=== PATIENT | female | born 1995 | race African-American/Black ===

== ENCOUNTER 2019-05-23 20:59 | Emergency (ER) | payer OTHER ==
[2019-05-23 21:07] VITALS: BP 146/90; PULSE 88; TEMP 98.6; BMI 29.2
--- NOTE | 2019-05-23 21:07 | PDOC ---
Rapid Medical Evaluation Chief Complaint: Respiratory Time Seen by Provider: 05/23/19 21:04 Medical Evaluation: 05/23/19 21:05 Pt c/o: upper mid sternal tightness/pressure when swallowing or eating, + cough , no fever/ sore throat, + smoker Pt on brief exam: vss, no tonsillar involvement, lcta Pt ordered for: none Pt to proceed to the ED Discharge Disposition - Diagnosis Cough - Referrals - Patient Instructions - Post Discharge Activity
[2019-05-23] MEDS ORDERED: ACETAMINOPHEN 500 MG TABLET (FP) PO ONE (21:57)
[2019-05-23] MEDS ORDERED: ACETAMINOPHEN 500 MG TABLET (FP) ONE (21:58)
--- NOTE | 2019-05-23 21:59 | PDOC ---
History of Present Illness - General Chief Complaint: Respiratory Stated Complaint: CHEST PAIN Time Seen by Provider: 05/23/19 21:04 - History of Present Illness Initial Comments: 05/23/19 21:57 23-year-old female without comorbidities presents for evaluation of increasing cough and chest tightness over the last 3 days. Over the last month or so she has been smoking marijuana about 3 times a day which has increased from her past use. No systemic symptoms. Past History - Past Medical History Allergies/Adverse Reactions: Allergies Allergy/AdvReac Type Severity Reaction Status Date / Time apple Allergy Verified 05/23/19 21:07 pear Allergy Verified 05/23/19 21:08 COPD: No - Psycho Social/Smoking Cessation Hx Smoking History: Current every day smoker Information on smoking cessation initiated: No Review of Systems - Review of Systems Constitutional: No: Fever Respiratory: Yes: Cough Neurological: Yes: Headache *Physical Exam - Vital Signs Last Vital Signs Temp Pulse Resp BP Pulse Ox 98.6 F 88 18 146/90 100 05/23/19 21:04 05/23/19 21:04 05/23/19 21:04 05/23/19 21:04 05/23/19 21:04 - Physical Exam Comments: 05/23/19 21:58 GENERAL: The patient is awake, alert, and fully oriented, in no acute distress. HEAD: Normal with no signs of trauma. EYES: sclera anicteric, conjunctiva clear. ENT: Ears normal NECK: Normal range of motion LUNGS: Breath sounds equal, clear to auscultation bilaterally. No wheezes, and no crackles. HEART: S1 and S2 without murmur, rub or gallop. ABDOMEN: Soft, nontender, normoactive bowel sounds. No guarding, no rebound. No masses. EXTREMITIES: Normal range of motion, no edema. No clubbing or cyanosis. No cords, erythema, or tenderness. NEUROLOGICAL: Cranial nerves II through XII grossly intact. Normal speech, normal gait. PSYCH: Normal mood, normal affect. SKIN: Warm, Dry, normal turgor, no rashes or lesions noted. Medical Decision Making - Medical Decision Making 05/23/19 21:58 Benign examination. Advised patient to cut down on marijuana use and follow-up with PCP Discharge - Discharge Information Problems reviewed: Yes Clinical Impression/Diagnosis: Cough Condition: Stable Disposition: HOME - Admission No - Follow up/Referral Referrals: [facility] [Non Staff, Medical] - - Patient Discharge Instructions Additional Instructions: Please cut down on his smoking use. Return to the emergency room for worsening symptoms. And without fail, please follow-up with internal medicine in 1 to 2 days for further evaluation and treatment options. - Post Discharge Activity
== END 2019-05-23 22:04 | disposition home or self-care (01) ==
LOC: JERFT 20:59
DX: R05 Cough (principal); F12.10 Cannabis abuse, uncomplicated; Z91.018 Allergy to other foods
CPT/HCPCS: 99281-25

== ENCOUNTER 2020-04-25 20:34 | Emergency (ER) | payer OTHER ==
[2020-04-25 20:39] VITALS: BP 132/65; PULSE 88; TEMP 98; BMI 29.2
--- NOTE | 2020-04-25 20:48 | PDOC ---
History of Present Illness - General Chief Complaint: Urinary Problem Stated Complaint: ABD PAIN Time Seen by Provider: 04/25/20 20:39 History Source: Patient - History of Present Illness Timing/Duration: reports: constant Abdominal Pain Onset Location: reports: other Past History - Medical History Allergies/Adverse Reactions: Allergies Allergy/AdvReac Type Severity Reaction Status Date / Time apple Allergy Verified 04/25/20 20:39 pear Allergy Verified 04/25/20 20:39 Home Medications: Ambulatory Orders Nitrofurantoin Monohyd/M-Cryst [Macrobid -] 100 mg PO BID #14 capsule 04/25/20 metroNIDAZOLE [Flagyl -] 500 mg PO DAILY #14 tablet 04/25/20 COPD: No - Reproductive History Is Patient Now?: No - Psycho-Social/Smoking History Smoking History: Current every day smoker Information on smoking cessation initiated: No - Substance Abuse Hx (Audit-C & DAST Scrn) How often the patient has a drink containing alcohol: Monthly or less Score: In Men: 4 or > Positive; In Women: 3 or > Positive: 1 Screen Result (Pos requires Nsg. Audit-10AR): Negative Review of Systems - Review of Systems Constitutional: No: Chills, Fever ABD/GI: No: Nausea, Vomiting, Abdominal cramping : Yes: Dysuria. No: Discharge, Flank Pain, Hematuria *Physical Exam - Vital Signs Last Vital Signs Temp Pulse Resp BP Pulse Ox 98 F 88 18 132/65 99 04/25/20 20:36 04/25/20 20:36 04/25/20 20:36 04/25/20 20:36 04/25/20 20:36 - Physical Exam General Appearance: Yes: Appropriately Dressed. No: Apparent Distress HEENT: positive: Normal Voice Neck: positive: Supple Respiratory/Chest: negative: Respiratory Distress Gastrointestinal/Abdominal: positive: Normal Bowel Sounds, Soft. negative: Tender, Distended, Guarding, Rebound Musculoskeletal: negative: CVA Tenderness Integumentary: positive: Dry, Warm Neurologic: positive: Fully Oriented, Alert, Normal Mood/Affect Medical Decision Making - Medical Decision Making 04/25/20 20:48 24 yo F, no sig hx, here w/ dysuria x 2-3 days. No flank pain, n/v/f/c or vaginal lesions. Reports no ab/nl vag discharge but reports "fishy" odor to discharge. No h/o STDs. see exam Dysuria No e/o pyelo UA neg for LE or nit but will tx based on sxs (no prior sen on records) Will add flagyl for ? BV (cautioned against ETOh use) Discharge - Discharge Information Problems reviewed: Yes Clinical Impression/Diagnosis: Dysuria Vaginitis Qualifiers: Chronicity: acute Qualified Code(s): N76.0 - Acute vaginitis Condition: Good Disposition: HOME - Additional Discharge Information Prescriptions: metroNIDAZOLE [Flagyl -] 500 mg PO DAILY #14 tablet Nitrofurantoin Monohyd/M-Cryst [Macrobid -] 100 mg PO BID #14 capsule - Follow up/Referral - Patient Discharge Instructions Patient Printed Discharge Instructions: Bacterial Vaginosis, Urinary Tract Infection Additional Instructions: Take medications as directed Refrain from alcohol us with flagyl as discussed Return to ED as needed - Post Discharge Activity
[2020-04-25 20:56] LABS: PH,URINE 5.5 (5.0-8.0); URINE APPEARANCE CLEAR; URINE BILIRUBIN NEGATIVE (NEGATIVE); URINE COLOR YELLOW; URINE GLUCOSE (UA) NEGATIVE (NEGATIVE); URINE KETONE TRACE (NEGATIVE); URINE LEUK ESTERASE NEGATIVE (NEGATIVE); URINE NITRITE NEGATIVE (NEGATIVE); URINE PROTEIN NEGATIVE (NEGATIVE)
--- OUTSIDE RECORDS SUMMARY | 2020-04-25 20:56 | XMS ---
:1995 Author Organization [facility] Care Team Providers Name Role Phone Johnathan Garcia Unavailable [phone] Tito Steele Unavailable [phone] Judd, Bharat Unavailable [phone] Judd, Bharat Unavailable [phone] Aszalos, Isabela Marleny Unavailable Unavailable Aszalos, Marleny Unavailable Unavailable Aszalos, Marleny Unavailable Unavailable Aszalos, Marleny Unavailable Unavailable Aszalos, Marleny Unavailable Unavailable Aszalos, Marleny Unavailable Unavailable Aszalos, Marleny Unavailable Unavailable Aszalos, Marleny Unavailable Unavailable Aszalos, Marleny Unavailable Unavailable Walker Unavailable [phone] Walker Unavailable [phone] Joey IQBAL Unavailable Unavailable Ringstad Unavailable Unavailable Ringstad Unavailable Unavailable Ringstad Unavailable Unavailable Ringstad Unavailable Unavailable Ringstad Unavailable Unavailable Ringstad Unavailable Unavailable Ringstad Unavailable Unavailable Ringstad Unavailable Unavailable Ringstad Unavailable Unavailable Ringstad Unavailable Unavailable Ringstad Unavailable Unavailable Vikas Unavailable [phone] Naveed Unavailable Unavailable Naveed Unavailable Unavailable Naveed Unavailable Unavailable Naveed Unavailable Unavailable Re-disclosure Warning The records that you are about to access may contain information from federally- assisted alcohol or drug abuse programs. If such information is present, then the following federally mandated warning applies: This information has been disclosed to you from records protected by federal confidentiality rules (42 CFR part 2). The federal rules prohibit you from making any further disclosure of this information unless further disclosure is expressly permitted by the written consent of the person to whom it pertains or as otherwise permitted by 42 CFR part 2. A general authorization for the release of medical or other information is NOT sufficient for this purpose. The Federal rules restrict any use of the information to criminally investigate or prosecute any alcohol or drug abuse patient.The records that you are about to access may contain highly sensitive health information, the redisclosure of which is protected by Article 27-F of the [facility] Public Health law. If you continue you may haveaccess to information: Regarding HIV / AIDS; Provided by facilities licensed or operated by the [facility] Office of Mental Health; or Provided by the [facility] Office for People With Developmental Disabilities. If such information is present, then the following [facility] mandated warning applies: This information has been disclosed to you from confidential records which are protected by state law. State law prohibits you from making any further disclosure of this information without the specific written consent of the person to whom it pertains, or as otherwise permitted by law. Any unauthorized further disclosure in violation of state law may result in a fine or fpc sentence or both. A general authorization for the release of medical or other information is NOT sufficient authorization for further disclosure. Allergies and Adverse Reactions Type Description Substance Reaction Status Data Source(s ) Propensity to Propensity to Propensity to NEXTG EN ([facility] adverse reactions adverse reactions adverse reactions [facility] (disorder) (disorder) (disorder) Center) Family History Family Member Family Member Family Member Date of Description Data Source(s) Name Gender Status Status Unknown Female Diagnosis 06/10/2017 NEXTGEN ( 12:00:00 AM [facility] EST Center) Encounters Encounter Providers Location Date Indications Data Source(s ) Attender: [facility] 02/14/2019 NEXTGE N ([facility] 07:37:00 PM Phil Medic al EDT - Center) 02/14/2019 07:37:00 PM EDT Emergency H 02/13/2019 [facility] 03:32:00 AM Medical Cente r EDT Attender: [facility] 10/19/2018 NEXTGE N ([facility] 04:49:00 PM [facility] Medic al EDT - Center) 10/19/2018 04:49:00 PM EDT Emergency H 10/18/2018 [facility] 05:29:00 AM Medical Cente r EDT Attender: [facility] 08/30/2018 NEX TGEN ([facility] 10:56:00 AM [facility] Medic al EST - Center) 08/30/2018 10:56:00 AM EST Attender: [facility] 02/17/2018 NEX TGEN ([facility] 09:05:00 AM [facility] Medic al EDT - Center) 02/17/2018 09:05:00 AM EDT Attender: [facility] 09/15/2017 NEX TGEN ([facility] 11:00:00 AM [facility] al EST - Center) 09/15/2017 11:00:00 AM EST Attender: [facility] 08/19/2017 NEXTG EN ([facility] 03:16:00 PM Phil [facility] al EST - Center) 08/19/2017 03:16:00 PM EST Attender: [facility] 06/10/2017 NEX TGEN ([facility] 02:02:00 PM [facility] Medic al EST - Center) 06/10/2017 02:02:00 PM EST Attender: [facility] 01/13/2016 [facility]GE N [facility] - [facility] 01/13/2016 06:40:00 PM EDT Attender: [facility] 02/03/2015 [facility]EXTGE N [facility]i [facility]T - Center) 02/03/2015 01:31:00 PM EDT Attender: [facility] 10/22/2014 [facility]EX TGEN [facility] - [facility]) 10/22/2014 02:28:00 PM EDT Attender: [facility] 12/20/2013 NEXTG EN ([facility] 03:00:00 PM Phil Medic dc EDT - Center) 12/20/2013 03:00:00 PM EDT Attender: [facility] 11/21/2013 NEXTGE N ([facility] 11:15:00 AM Phil Medic dc EDT - Center) 11/21/2013 11:15:00 AM EDT Attender: [facility] 12/05/2012 NEXTGE N ([facility] 03:11:00 PM [facility] EDT - Center) 12/05/2012 03:11:00 PM EDT Attender: [facility] 08/23/2011 NEXTGE N ([facility] 09:57:00 AM [facility] EST - Center) 08/23/2011 09:57:00 AM EST Attender: [facility] 07/15/2010 NEXTGE N ([facility] 03:46:00 PM [facility] EST - Center) 07/15/2010 03:46:00 PM EST Attender: [facility] 12/31/2009 NEXTGE N ([facility] 01:26:00 PM [facility] EDT - Center) 12/31/2009 01:26:00 PM EDT Attender: [facility] 12/30/2009 NEXTGE N ([facility] 12:53:00 PM [facility] EDT - Center) 12/30/2009 12:53:00 PM EDT Immunizations Vaccine Date Status Description Data Source(s) New in 2011. IIV4 06/10/2017 completed Influenza, injectable, NEXTGEN ([facility] 12:00:00 AM EST quadrivalent, Phil Med ical preservative free, 3 Center) yrs or older Source: New Immunization Record HPV, quadrivalent 01/13/2016 12:00:00 AM EDT completed HPV NEXTGEN ([facility]) Source: New Immunization Record HPV, quadrivalent 02/03/2015 12:00:00 AM EDT completed HPV NEXTGEN ([facility]) Source: New Immunization Record HPV, quadrivalent 10/22/2014 12:00:00 AM EDT completed HPV NEXTGEN ([facility]) Source: New Immunization Record varicella 08/23/2011 12:00:00 AM EST completed Varicella N EXTGEN ([facility]) Source: New Immunization Record Tdap 08/23/2011 12:00:00 AM EST completed Tdap N EXTGEN ([facility]) Source: New Immunization Record Hep A, ped/adol, 2 07/15/2010 12:00:00 completed Hep A (ped/adol , 2 NEXTGEN ([facility] dose AM EST dose) [facility]) Source: New Immunization Record Hep A, ped/adol, 2 12/31/2009 12:00:00 completed Hep A (ped/adol , 2 NEXTGEN ([facility] dose AM EDT dose) [facility]) Source: New Immunization Record Medications Medication Brand Start Product Dose Route Administrative Pharmacy [facility] Indications Reaction Description Data Name Date Form Instructions Instructions Source(s) Metronidazo metron 02/17/ active take 1 NEXTGEN le 500 MG idazol 2018 tablet twice ([facility] Oral Tablet e 500 12:00: a day for 7 Phil metronidazo mg 00 AM days Medical le 500 mg tablet EDT Center) tablet Ibuprofen ibupro 1 complet [facility] 400 MG Oral fen ed Phil Tablet 400 mg Medical ibuprofen Tablet Center 400 mg , Tablet, Ordere Ordered By: d By: Cindy Emanuel MDDirection , s: 1 tablet MDDire oral every ctions six hours : 1 PRN pain tablet oral every six hours PRN pain Phenazopyri phenaz 1 complet Jacobo nt dine opyrid ed Phil hydrochlori ine Medical de 200 MG 200 mg Center Oral Tablet Tablet phenazopyri , dine 200 mg Ordere Tablet, d By: Ordered By: Natarajan MDDirection MDDire s: 1 tablet ctions oral three : 1 times a day tablet PRN dysuria oral three times a day PRN dysuri a Ciprofloxac ciprof 1 complet Jacobo nt in 250 MG loxaci ed Phil Oral Tablet n HCl Medical ciprofloxac 250 mg Center in HCl 250 Tablet mg Tablet, , Ordered By: Dai greene By: Francesco Whiteirection Cindy s: 1 tablet , oral every MDDire twelve ctions hours : 1 tablet oral every twelve hours Insurance Providers Payer name Policy type Policy ID Covered Covered libertarian's Policy P leslie / Coverage libertarian ID relationship to Palm Inf ormation type palm [place] [id number] [place] [id number] HMO MVP MEDICAID [id number] SP [id number] G HMO MVP/HHP [id number] self [id number] O MVP/HHP O [id number] 01 [id number] 500 Problems, Conditions, and Diagnoses Code Display Name Description Problem Type Effective Data Dates Source(s) [id number] Bacterial Bacterial Problem NEXTGEN vaginosis vaginosis ([facility]) R07.89 Other chest pain OTHER CHEST PAIN Diagnosis 02/13/2019 [facility] 03:32:00 AM Medical EDT Center R07.81 Pleurodynia PLEURODYNIA Diagnosis 02/13/2019 [place] [facility] 03:32:00 AM Medical EDT Center N39.0 Urinary tract URINARY TRACT Diagnosis 10/18/2018 [facility] infection, site INFECTION, SITE 05:29:00 AM Med ical not specified NOT SPECIFIED EDT Center R39.89 Other symptoms and OTHER SYMPTOMS AND Diagnosis 9 [facility] signs involving SIGNS INVOLVING 05:29:00 AM Med ical the genitourinary THE GENITOURINARY EDT Center system SYSTEM Results ID Date Data Source [id number] 10/18/2018 06:00:00 AM EDT [facility] 0 Name Value Range Interpretation Description Data Sup porting Code Source(s) Document(s ) UNK CLEAR <content [facility] styleCode="Jaime Phil d">Urine Medical Clarity Center </content>CLOU DY <content styleCode="Delilah lics"> (CLEAR )</content> Ketones NEGATIVE <content [facility] [Mass/volume] styleCode="Jaime Phil in Urine by d">Urine Medical Test strip Ketone Center </content>NEGA TIVE MG/DL<content styleCode="Delilah lics"> (NEGATIVE MG/DL)</conten t> UNK NEGATIVE <content [facility] styleCode="Jaime Phil d">Urine Medical Bilirubin Center </content>NEGA TIVE <content styleCode="Delilah lics"> (NEGATIVE )</content> Color of Urine YELLOW <content [facility] styleCode="Jaime Phil d">Color, Medical Urine Center </content>YELL OW <content styleCode="Delilah lics"> (YELLOW )</content> Glucose NEGATIVE <content [facility] [Mass/volume] styleCode="Jaime Cohens in Urine by d">Urine Medical Test strip Glucose Center </content>NEGA TIVE MG/DL<content styleCode="Delilah lics"> (NEGATIVE MG/DL)</conten t> Specific 1.015-1.02 Above high <content [facility] gravity of 5 normal styleCode="Jaime Cohens Urine by Test d">Urine Medical strip Specific Center [place] </content>>= 1.030 H<content styleCode="Delilah lics"> (1.015-1.025 )</content> Nitrite NEGATIVE <content [facility] [Presence] in styleCode="Jaime Cohens Urine by Test d">Urine Medical strip Nitrite Center </content>NEGA TIVE <content styleCode="Delilah lics"> (NEGATIVE )</content> Urobilinogen 0.2-1.0 <content [facility] [Units/volume] styleCode="Jaime Cohens in Urine by d">Urine Medical Test strip Urobilinogen Center </content>0.2 MG/DL<content styleCode="Delilah lics"> (0.2-1.0 MG/DL)</conten t> Hemoglobin NEGATIVE <content [facility] [Presence] in styleCode="Jaime Cohens Urine by Test d">Urine Blood Medical strip </content>LARG Center E <content styleCode="Delilah lics"> (NEGATIVE )</content> pH of Urine by 4.5-8.0 <content Saint Test strip styleCode="Jaime Phil d">Urine pH Medical </content>6.0 Center <content styleCode="Delilah lics"> (4.5-8.0 )</content> Protein NEGATIVE <content [facility] [Mass/volume] styleCode="Jaime Phil in Urine by d">Urine Medical Test strip Protein Center </content>300 mg/dl MG/DL<content styleCode="Delilah lics"> (NEGATIVE MG/DL)</conten t> UNK <content [facility] styleCode="Jaime Phil d">Epithelial Medical Cell Center </content>0-2 LPF (Reference Range: not available)<br/ > UNK 0-3 <content [facility] styleCode="Jaime Phil d">Urine White Medical Blood Cell Center </content>10 - 20 HPF<content styleCode="Delilah lics"> (0-3 HPF)</content> UNK 0-3 <content [facility] styleCode="Jaime Phil d">Urine Red Medical Blood Cell Center </content>100- 200 HPF<content styleCode="Delilah lics"> (0-3 HPF)</content> Leukocyte NEGATIVE <content [facility] esterase styleCode="Jaime Phil [Presence] in d">Urine Medical Urine by Test Leukocyte Center strip </content>SMAL L <content styleCode="Delilah lics"> (NEGATIVE )</content> ID Date Data Source Microbiology.[id number] 10/18/2018 06:00:00 AM EDT [facility] 400 Name Value Range Interpretation Code Description Data Elenita rce(s) Supporting Document(s ) UNK <item><content [facility] styleCode="Bold"> Medical Cent er Culture Status </content>
<t able><tbody><tr>< td>Specimen Number:</td><td>[id number]</td></tr ><tr><td>Sample Collection Date/Time: </td><td> 9 6:00 AM</td></tr><tr>< td>Specimen Source:</td><td>U RINE</td></tr><tr ><td>[place] Count Urine:</td><td>50 ,000 CFU/ML </td></tr><tr><td >Preliminary 1:</td><td>GRAM NEGATIVE BACILLI </td></tr><tr><td >Culture Status:</td><td>F inal </td></tr><tr><td >Culture Report:</td><td>C ulture in progress </td></tr><tr><td >Urine Culture:</td><td> Collection Plate Date: 10/18/2018 06:00 </td></tr><tr><td >Organism 1:</td><td>ESCHER ICHIA COLI </td></tr></tbody ></table>
<ta ble border="2"><tbody ><tr><td></td><td >1</td></tr><tr>< td>Comment</td><t d></td></tr><tr>< td>Result Value</td><td>ESC HERICHIA COLI </td></tr><tr><td >Result Status</td><td>Fi nal Result</td></tr>< tr><td>AMPICILLIN </td><td>>16 R</td></tr><tr><t d>AMPICILLIN SULBACTAM</td><td >>16/8 R</td></tr><tr><t d>AZTREONAM</td>< td><=8 S</td></tr><tr><t d>CEFOTETAN</td>< td><= 16 S</td></tr><tr><t d>CEFTAZIDIME</td ><td><=1 S</td></tr><tr><t d>CEFUROXIME</td> <td><=4 S</td></tr><tr><t d>CIPROFLOXACIN</ td><td><= 1 S</td></tr><tr><t d>ERTAPENEM</td>< td><=1 S</td></tr><tr><t d>GENTAMICIN</td> <td><= 4 S</td></tr><tr><t d>IMIPENEM</td><t d><= 1 S</td></tr><tr><t d>LEVOFLOXACIN</t d><td><= 2 S</td></tr><tr><t d>MEROPENEM</td>< td><= 1 S</td></tr><tr><t d>NITROFURANTOIN< /td><td><= 32 S</td></tr><tr><t d>PIPERACILLIN/TA ZOBACTAM</td><td> <= 16 S</td></tr><tr><t d>TETRACYCLINE</t d><td><= 4 S</td></tr><tr><t d>TIGECYCLINE</td ><td><= 2 S</td></tr><tr><t d>TRIMETHOPRIM/PATEL LFAMETHOXAZOLE</t d><td><=2/38 S</td></tr></tbod y></table></item> UNK <item><content [facility] styleCode="Bold"> Medical [facility] er Culture Report </content>
<t able><tbody><tr>< td>Specimen Number:</td><td>[id number]</td></tr ><tr><td>Sample Collection Date/Time: </td><td> 9 6:00 AM</td></tr><tr>< td>Specimen Source:</td><td>U RINE</td></tr><tr ><td>Urine Culture:</td><td> Collection Plate Date: 10/18/2018 06:00 </td></tr><tr><td >Culture Status:</td><td>F inal </td></tr><tr><td >Culture Report:</td><td>C ulture in progress </td></tr><tr><td >[place] Count Urine:</td><td>50 ,000 CFU/ML </td></tr><tr><td >Preliminary 1:</td><td>GRAM NEGATIVE BACILLI </td></tr><tr><td >Organism 1:</td><td>ESCHER ICHIA COLI </td></tr></tbody ></table>
<ta ble border="2"><tbody ><tr><td></td><td >1</td></tr><tr>< td>Comment</td><t d></td></tr><tr>< td>Result Value</td><td>ESC HERICHIA COLI </td></tr><tr><td >Result Status</td><td>Fi nal Result</td></tr>< tr><td>AMPICILLIN </td><td>>16 R</td></tr><tr><t d>AMPICILLIN SULBACTAM</td><td >>16/8 R</td></tr><tr><t d>AZTREONAM</td>< td><=8 S</td></tr><tr><t d>CEFOTETAN</td>< td><= 16 S</td></tr><tr><t d>CEFTAZIDIME</td ><td><=1 S</td></tr><tr><t d>CEFUROXIME</td> <td><=4 S</td></tr><tr><t d>CIPROFLOXACIN</ td><td><= 1 S</td></tr><tr><t d>ERTAPENEM</td>< td><=1 S</td></tr><tr><t d>GENTAMICIN</td> <td><= 4 S</td></tr><tr><t d>IMIPENEM</td><t d><= 1 S</td></tr><tr><t d>LEVOFLOXACIN</t d><td><= 2 S</td></tr><tr><t d>MEROPENEM</td>< td><= 1 S</td></tr><tr><t d>NITROFURANTOIN< /td><td><= 32 S</td></tr><tr><t d>PIPERACILLIN/TA ZOBACTAM</td><td> <= 16 S</td></tr><tr><t d>TETRACYCLINE</t d><td><= 4 S</td></tr><tr><t d>TIGECYCLINE</td ><td><= 2 S</td></tr><tr><t d>TRIMETHOPRIM/PATEL LFAMETHOXAZOLE</t d><td><=2/38 S</td></tr></tbod y></table></item> ID Date Data Source Urinalysis 10/18/2018 06:00:00 AM EDT [facility] Name Value Range Interpretation Description Data Sup porting Code Source(s) Document(s ) Glucose NEGATIVE <content [facility] [Mass/volume] styleCode="Jaime Villarreal in Urine by d">Urine Medical Test strip Glucose Center </content>NEGA TIVE MG/DL<content styleCode="Delilah lics"> (NEGATIVE MG/DL)</conten t> Color of Urine YELLOW <content Saint styleCode="[facility] d">Color, Medical Urine Center </content>YELL OW <content styleCode="Delilah lics"> (YELLOW )</content> UNK NEGATIVE <content Saint styleCode="[facility] d">Urine Medical Bilirubin Center </content>NEGA TIVE <content styleCode="Delilah lics"> (NEGATIVE )</content> Specific 1.015-1.02 Above high <content [facility] gravity of 5 normal styleCode="Jaime Villarreal Urine by Test d">Urine Medical strip Specific Center [place] </content>>= 1.030 H<content styleCode="Delilah lics"> (1.015-1.025 )</content> UNK CLEAR <content [facility] styleCode="Jaime Phil d">Urine Medical Clarity Center </content>CLOU DY <content styleCode="Delilah lics"> (CLEAR )</content> Ketones NEGATIVE <content [facility] [Mass/volume] styleCode="Jaime Phil in Urine by d">Urine Medical Test strip Ketone Center </content>NEGA TIVE MG/DL<content styleCode="Delilah lics"> (NEGATIVE MG/DL)</conten t> pH of Urine by 4.5-8.0 <content Saint Test strip styleCode="Jaime Phil d">Urine pH Medical </content>6.0 Center <content styleCode="Delilah lics"> (4.5-8.0 )</content> Urobilinogen 0.2-1.0 <content [facility] [Units/volume] styleCode="Jaime Phil in Urine by d">Urine Medical Test strip Urobilinogen Center </content>0.2 MG/DL<content styleCode="Delilah lics"> (0.2-1.0 MG/DL)</conten t> Nitrite NEGATIVE <content [facility] [Presence] in styleCode="Jaime Cohens Urine by Test d">Urine Medical strip Nitrite Center </content>NEGA TIVE <content styleCode="Delilah lics"> (NEGATIVE )</content> Hemoglobin NEGATIVE <content Saint [Presence] in styleCode="Jaime Cohens Urine by Test d">Urine Blood Medical strip </content>LARG Center E <content styleCode="Delilah lics"> (NEGATIVE )</content> Protein NEGATIVE <content Saint [Mass/volume] styleCode="Jaime Phil in Urine by d">Urine Medical Test strip Protein Center </content>300 mg/dl MG/DL<content styleCode="Delilah lics"> (NEGATIVE MG/DL)</conten t> UNK 0-3 <content Saint styleCode="Jaime Phil d">Urine Red Medical Blood Cell Center </content>100- 200 HPF<content styleCode="Delilah lics"> (0-3 HPF)</content> UNK 0-3 <content Saint styleCode="Jaime Phil d">Urine White Medical Blood Cell Center </content>10 - 20 HPF<content styleCode="Delilah lics"> (0-3 HPF)</content> Leukocyte NEGATIVE <content Saint esterase styleCode="Jaime Villarreal [Presence] in d">Urine Medical Urine by Test Leukocyte Center strip </content>SMAL L <content styleCode="Delilah lics"> (NEGATIVE )</content> UNK <content Saint styleCode="Jaime Villarreal d">Epithelial Medical Cell Center </content>0-2 LPF (Reference Range: not available)<br/ > ID Date Data Source Microbiology 10/18/2018 06:00:00 AM EDT [facility] Name Value Range Interpretation Code Description Data Elenita rce(s) Supporting Document(s ) UNK <item><content [facility] styleCode="Bold"> Medical Cent er Culture Report </content>
<t able><tbody><tr>< td>Specimen Number:</td><td>[id number]</td></tr ><tr><td>Sample Collection Date/Time: </td><td> 9 6:00 AM</td></tr><tr>< td>Specimen Source:</td><td>U RINE</td></tr><tr ><td>Urine Culture:</td><td> Collection Plate Date: 10/18/2018 06:00 </td></tr><tr><td >Culture Status:</td><td>P reliminary </td></tr><tr><td >Culture Report:</td><td>C ulture in progress </td></tr></tbody ></table></item> UNK <item><content [facility] styleCode="Bold"> Medical Cent er Culture Status </content>
<t able><tbody><tr>< td>Specimen Number:</td><td>[id number]</td></tr ><tr><td>Sample Collection Date/Time: </td><td> 9 6:00 AM</td></tr><tr>< td>Specimen Source:</td><td>U RINE</td></tr><tr ><td>Culture Status:</td><td>P reliminary </td></tr><tr><td >Culture Report:</td><td>C ulture in progress </td></tr><tr><td >Urine Culture:</td><td> Collection Plate Date: 10/18/2018 06:00 </td></tr></tbody ></table></item> ID Date Data Source Microbiology.[id number] 02/17/2018 09:55:00 AM EDT [facility] 400 Name Value Range Interpretation Description Data Sup porting Code Source(s) Document(s ) UNK <item><content [facility] styleCode="Bold Medical ">Megasphaera Center Species </content>
<table><tbody>< tr><td>Specimen Number:</td><td >[id number]</td> </tr><tr><td>Sa mple Collection Date/Time: </td><td> 018 9:55 AM</td></tr><tr ><td>Specimen Source:</td><td >VAGINAL</td></ tr><tr><td>C. Parapsilosis, DNA:</td><td>De tected </td></tr><tr>< td>BV Category:</td>< td>EQUIVOCAL </td></tr><tr>< td>Lactobacillu s Species:</td><t d>>8.0 </td></tr><tr>< td>Atopobium Vaginae:</td><t d>Not Detected </td></tr><tr>< td>Megasphaera Species:</td><t d>Not Detected </td></tr><tr>< td>Gardnerella Vaginalis:</td> <td>7.5 </td></tr><tr>< td>T Vaginalis RNA,QL TMA:</td><td>No t Detected </td></tr><tr>< td>C. Albicans, DNA:</td><td>De tected </td></tr><tr>< td>C. Glabrata, DNA:</td><td>No t Detected </td></tr><tr>< td>C. Tropicalis, DNA:</td><td>No t Detected </td></tr></tbo dy></table></it em> UNK <item><content [facility] styleCode="Bold Medical ">Lactobacillus Center Species </content>
<table><tbody>< tr><td>Specimen Number:</td><td >[id number]</td> </tr><tr><td>Sa mple Collection Date/Time: </td><td>02/17/ 018 9:55 AM</td></tr><tr ><td>Specimen Source:</td><td >VAGINAL</td></ tr><tr><td>C. Parapsilosis, DNA:</td><td>De tected </td></tr><tr>< td>BV Category:</td>< td>EQUIVOCAL </td></tr><tr>< td>Lactobacillu s Species:</td><t d>>8.0 </td></tr><tr>< td>Atopobium Vaginae:</td><t d>Not Detected </td></tr><tr>< td>Megasphaera Species:</td><t d>Not Detected </td></tr><tr>< td>Gardnerella Vaginalis:</td> <td>7.5 </td></tr><tr>< td>T Vaginalis RNA,QL TMA:</td><td>No t Detected </td></tr><tr>< td>C. Albicans, DNA:</td><td>De tected </td></tr><tr>< td>C. Glabrata, DNA:</td><td>No t Detected </td></tr><tr>< td>C. Tropicalis, DNA:</td><td>No t Detected </td></tr></tbo dy></table></it em> UNK <item><content [facility] styleCode="Bold Medical ">Gardnerella Center Vaginalis </content>
<table><tbody>< tr><td>Specimen Number:</td><td >[id number]</td> </tr><tr><td>Sa mple Collection Date/Time: </td><td>02/17/ 018 9:55 AM</td></tr><tr ><td>Specimen Source:</td><td >VAGINAL</td></ tr><tr><td>C. Tropicalis, DNA:</td><td>No t Detected </td></tr><tr>< td>C. Glabrata, DNA:</td><td>No t Detected </td></tr><tr>< td>C. Albicans, DNA:</td><td>De tected </td></tr><tr>< td>T Vaginalis RNA,QL TMA:</td><td>No t Detected </td></tr><tr>< td>Gardnerella Vaginalis:</td> <td>7.5 </td></tr><tr>< td>Megasphaera Species:</td><t d>Not Detected </td></tr><tr>< td>Atopobium Vaginae:</td><t d>Not Detected </td></tr><tr>< td>Lactobacillu s Species:</td><t d>>8.0 </td></tr><tr>< td>BV Category:</td>< td>EQUIVOCAL </td></tr><tr>< td>C. Parapsilosis, DNA:</td><td>De tected </td></tr></tbo dy></table></it em> UNK <item><content [facility] styleCode="[facility] ">Atopobium Center Vaginae </content>
<table><tbody>< tr><td>Specimen Number:</td><td >[id number]</td> </tr><tr><td>Sa mple Collection Date/Time: </td><td> 018 9:55 AM</td></tr><tr ><td>Specimen Source:</td><td >VAGINAL</td></ tr><tr><td>C. Tropicalis, DNA:</td><td>No t Detected </td></tr><tr>< td>C. Glabrata, DNA:</td><td>No t Detected </td></tr><tr>< td>C. Albicans, DNA:</td><td>De tected </td></tr><tr>< td>T Vaginalis RNA,QL TMA:</td><td>No t Detected </td></tr><tr>< td>Gardnerella Vaginalis:</td> <td>7.5 </td></tr><tr>< td>Megasphaera Species:</td><t d>Not Detected </td></tr><tr>< td>Atopobium Vaginae:</td><t d>Not Detected </td></tr><tr>< td>Lactobacillu s Species:</td><t d>>8.0 </td></tr><tr>< td>BV Category:</td>< td>EQUIVOCAL </td></tr><tr>< td>C. Parapsilosis, DNA:</td><td>De tected </td></tr></tbo dy></table></it em> UNK Not Detected <item><content [facility] styleCode="[facility] ">C. Albicans, Center DNA </content>
<table><tbody>< tr><td>Specimen Number:</td><td >[id number]</td> </tr><tr><td>Sa mple Collection Date/Time: </td><td>02/17/ 018 9:55 AM</td></tr><tr ><td>Specimen Source:</td><td >VAGINAL</td></ tr><tr><td>C. Tropicalis, DNA:</td><td>No t Detected </td></tr><tr>< td>C. Glabrata, DNA:</td><td>No t Detected </td></tr><tr>< td>C. Albicans, DNA:</td><td>De tected </td></tr><tr>< td>T Vaginalis RNA,QL TMA:</td><td>No t Detected </td></tr><tr>< td>Gardnerella Vaginalis:</td> <td>7.5 </td></tr><tr>< td>Megasphaera Species:</td><t d>Not Detected </td></tr><tr>< td>Atopobium Vaginae:</td><t d>Not Detected </td></tr><tr>< td>Lactobacillu s Species:</td><t d>>8.0 </td></tr><tr>< td>BV Category:</td>< td>EQUIVOCAL </td></tr><tr>< td>C. Parapsilosis, DNA:</td><td>De tected </td></tr></tbo dy></table></it em> UNK Not Detected <item><content [facility] styleCode="[facility] ">C. Center Tropicalis, DNA </content>
<table><tbody>< tr><td>Specimen Number:</td><td >[id number]</td> </tr><tr><td>Sa mple Collection Date/Time: </td><td> 018 9:55 AM</td></tr><tr ><td>Specimen Source:</td><td >VAGINAL</td></ tr><tr><td>C. Tropicalis, DNA:</td><td>No t Detected </td></tr><tr>< td>C. Glabrata, DNA:</td><td>No t Detected </td></tr><tr>< td>C. Albicans, DNA:</td><td>De tected </td></tr><tr>< td>T Vaginalis RNA,QL TMA:</td><td>No t Detected </td></tr><tr>< td>Gardnerella Vaginalis:</td> <td>7.5 </td></tr><tr>< td>Megasphaera Species:</td><t d>Not Detected </td></tr><tr>< td>Atopobium Vaginae:</td><t d>Not Detected </td></tr><tr>< td>Lactobacillu s Species:</td><t d>>8.0 </td></tr><tr>< td>BV Category:</td>< td>EQUIVOCAL </td></tr><tr>< td>C. Parapsilosis, DNA:</td><td>De tected </td></tr></tbo dy></table></it em> UNK Not Detected <item><content [facility] styleCode[facility] ">C. Glabrata, Center DNA </content>
<table><tbody>< tr><td>Specimen Number:</td><td >[id number]</td> </tr><tr><td>Sa mple Collection Date/Time: </td><td> 9:55 AM</td></tr><tr ><td>Specimen Source:</td><td >VAGINAL</td></ tr><tr><td>C. Parapsilosis, DNA:</td><td>De tected </td></tr><tr>< td>BV Category:</td>< td>EQUIVOCAL </td></tr><tr>< td>Lactobacillu s Species:</td><t d>>8.0 </td></tr><tr>< td>Atopobium Vaginae:</td><t d>Not Detected </td></tr><tr>< td>Megasphaera Species:</td><t d>Not Detected </td></tr><tr>< td>Gardnerella Vaginalis:</td> <td>7.5 </td></tr><tr>< td>T Vaginalis RNA,QL TMA:</td><td>No t Detected </td></tr><tr>< td>C. Albicans, DNA:</td><td>De tected </td></tr><tr>< td>C. Glabrata, DNA:</td><td>No t Detected </td></tr><tr>< td>C. Tropicalis, DNA:</td><td>No t Detected </td></tr></tbo dy></table></it em> UNK Not Detected <item><content [facility] styleCode="[facility] ">T Vaginalis Center RNA,QL TMA </content>
<table><tbody>< tr><td>Specimen Number:</td><td >[id number]</td> </tr><tr><td> mple Collection Date/Time: </td><td> 9:55 AM</td></tr><tr ><td>Specimen Source:</td><td >VAGINAL</td></ tr><tr><td>C. Parapsilosis, DNA:</td><td>De tected </td></tr><tr>< td>BV Category:</td>< td>EQUIVOCAL </td></tr><tr>< td>Lactobacillu s Species:</td><t d>>8.0 </td></tr><tr>< td>Atopobium Vaginae:</td><t d>Not Detected </td></tr><tr>< td>Megasphaera Species:</td><t d>Not Detected </td></tr><tr>< td>Gardnerella Vaginalis:</td> <td>7.5 </td></tr><tr>< td>T Vaginalis RNA,QL TMA:</td><td>No t Detected </td></tr><tr>< td>C. Albicans, DNA:</td><td>De tected </td></tr><tr>< td>C. Glabrata, DNA:</td><td>No t Detected </td></tr><tr>< td>C. Tropicalis, DNA:</td><td>No t Detected </td></tr></tbo dy></table></it em> UNK Not Detected <item><content [facility] styleCode="[facility] ">C. Center Parapsilosis, DNA </content>
<table><tbody>< tr><td>Specimen Number:</td><td >[id number]</td> </tr><tr><td>Sa mple Collection Date/Time: </td><td>02/17/ 018 9:55 AM</td></tr><tr ><td>Specimen Source:</td><td >VAGINAL</td></ tr><tr><td>C. Parapsilosis, DNA:</td><td>De tected </td></tr><tr>< td>BV Category:</td>< td>EQUIVOCAL </td></tr><tr>< td>Lactobacillu s Species:</td><t d>>8.0 </td></tr><tr>< td>Atopobium Vaginae:</td><t d>Not Detected </td></tr><tr>< td>Megasphaera Species:</td><t d>Not Detected </td></tr><tr>< td>Gardnerella Vaginalis:</td> <td>7.5 </td></tr><tr>< td>T Vaginalis RNA,QL TMA:</td><td>No t Detected </td></tr><tr>< td>C. Albicans, DNA:</td><td>De tected </td></tr><tr>< td>C. Glabrata, DNA:</td><td>No t Detected </td></tr><tr>< td>C. Tropicalis, DNA:</td><td>No t Detected </td></tr></tbo dy></table></it em> UNK NOT SUPPORTIVE <item><content [facility] styleCode="[facility] ">BV Category Center </content>
<table><tbody>< tr><td>Specimen Number:</td><td >[id number]</td> </tr><tr><td>Sa mple Collection Date/Time: </td><td> 018 9:55 AM</td></tr><tr ><td>Specimen Source:</td><td >VAGINAL</td></ tr><tr><td>C. Tropicalis, DNA:</td><td>No t Detected </td></tr><tr>< td>C. Glabrata, DNA:</td><td>No t Detected </td></tr><tr>< td>C. Albicans, DNA:</td><td>De tected </td></tr><tr>< td>T Vaginalis RNA,QL TMA:</td><td>No t Detected </td></tr><tr>< td>Gardnerella Vaginalis:</td> <td>7.5 </td></tr><tr>< td>Megasphaera Species:</td><t d>Not Detected </td></tr><tr>< td>Atopobium Vaginae:</td><t d>Not Detected </td></tr><tr>< td>Lactobacillu s Species:</td><t d>>8.0 </td></tr><tr>< td>BV Category:</td>< td>EQUIVOCAL </td></tr><tr>< td>C. Parapsilosis, DNA:</td><td>De tected </td></tr></tbo dy></table></it em> Procedure Social History Code Duration Value Status Description Data Source(s ) Smoking 02/13/2019 Denies Ever completed Denies Ever Smoked [facility] 05:40:00 AM EDT [facility] Smoking 02/13/2019 Denies Ever completed Denies Ever Smoked [facility] 04:47:00 AM EDT [facility] Smoking 02/13/2019 Denies Ever completed Denies Ever Smoked [facility] 03:36:00 AM EDT [facility] enter Smoking 10/18/2018 Denies Ever completed Denies Ever Smoked [facility] 06:38:00 AM EDT [facility] enter Smoking 10/18/2018 Denies Ever completed Denies Ever Smoked [facility] 06:03:00 AM EDT [facility] enter Smoking 10/18/2018 Denies Ever completed Denies Ever Smoked [facility] 05:43:00 AM EDT [facility] enter Smoking Unknown if ever completed Unknown if ever [facility]ide[facility] mert [facility] smoked smoked [facility] Vital Signs ID Date Data Source UNK Name Value Range Interpretation Code Description Data Source(s) Body temperature 36.699944 36.468215 [facility] Respiratory rate 18 /min 18 /min [facility] Oxygen saturation 99 % 99 % [facility] Ar[facility] by Pulse oximetry Heart rate 82 /min 82 /min [facility] Diastolic blood 77 mm[Hg] 77 mm[Hg] [facility] pressure [facility] Systolic blood 126 mm[Hg] 126 mm[Hg] [facility] Body weight 83.265695 kg 83.540380 kg [facility] Measured [facility] Body temperature 36.393905 36.283138 [facility] Respiratory rate 20 /min 20 /min [facility] Oxygen saturation 90 % 90 % [facility] Arterial blood [facility] Center by Pulse oximetry Heart rate 51 /min 51 /min [facility] Body height 160.201490 160.510829 cm [facility] Diastolic blood 60 mm[Hg] 60 mm[Hg] [facility] Systolic blood 137 mm[Hg] 137 mm[Hg] [facility] Body mass index 32.4 kg/m2 32.4 kg/m2 [facility] (BMI) [Ratio] [facility] Patient Treatment Plan of Care Planned Activity Planned Date Details Description Data Source (s) Metronidazole 500 MG Oral 02/17/2018 NE XTGEN ([facility] 12:00:00 AM EDT [facility]) Ibuprofen 400 MG Oral [facility] Phenazopyridine [place] [facility] hydrochloride 200 MG Oral [facility] Tablet Ciprofloxacin 250 MG Oral [facility]
[2020-04-25 20:59] LABS: HCG,QUALITATIVE URINE Negative
== END 2020-04-25 22:27 | disposition home or self-care (01) ==
LOC: JERFT 20:34 → JER 20:34 → JERFT 22:27
DX: R30.0 Dysuria (principal); N76.0 Acute vaginitis
CPT/HCPCS: 81003; 84703; 87086; 99284-25